=== PATIENT | male | born 1965 | race Caucasian/White ===

== ENCOUNTER 2023-03-24 20:08 | Emergency (ER) | payer BC ==
[2023-03-24] MEDS ORDERED: Acetaminophen 500 MG Tab PO STA (21:49)
== END 2023-03-24 23:05 | disposition home or self-care (01) ==
LOC: JP.ED 20:08
DX: M25.511 Pain in right shoulder (principal); I10 Essential (primary) hypertension; Z88.5 Allergy status to narcotic agent; Z88.6 Allergy status to analgesic agent; Z79.899 Other long term (current) drug therapy; V80.010A Animal-rider injured by fall from or being thrown from horse in noncollision accident, initial encounter
CPT/HCPCS: 73030; 99284; A9270